=== PATIENT | male | born 1965 | race Caucasian/White ===

== ENCOUNTER 2017-05-11 11:57 | Emergency (ER) | payer MEDICAID, OTHER ==
[~2017-05-11] VITALS: Ht 160 cm; Wt 78.0 kg
[2017-05-11 11:59] VITALS: Ht 160 cm; Wt 78.0 kg
--- NOTE | 2017-05-11 12:14 | ERD ---
ER Documentation Chief Complaint Chief Complaint ap since monday HPI The patient is a 31-year-old male, presenting to the ER because of intermittent epigastric abdominal pain radiating to the left upper quadrant for the last 5 days. He went to [place] 4 days ago where he saw a doctor treated him with Bactrim DS. He took the medication 3 days ago when he returned to the [place] and did not get better, therefore he came to the ER. He also complains of minimal diffuse body itch and right ring finger itch after he took the Bactrim. The pain is worse with eating, he denies similar symptoms previously, denies fever, cough, neck pain, chest pain, dyspnea. He denies vomiting, dysuria, diarrhea, constipation. He does not smoke nor drink Past medical/surgical history: None ROS All systems reviewed and are negative except as per history of present illness. Medications Home Meds Active Scripts Triamcinolone Acetonide* (Kenalog*) 0.1%-15GM Cr, 1 APPLIC TOP BID for 7 Days, # 1 TUB Prov:SIM SOLIS MD 05/11/17 Pantoprazole* (Protonix*) 40 Mg Tablet.dr, 40 MG PO DAILY, #20 TAB Prov:SIM SOLIS MD 05/11/17 Diphenhydramine Hcl (Benadryl) 25 Mg Cap, 50 MG PO Q6, #20 CAP Prov:SIM SOLIS MD 05/11/17 Physical Exam Vitals Vital Signs Date Time Temp Pulse Resp B/P Pulse Ox O2 Delivery O2 Flow Rate FiO2 05/11/17 11:59 98.1 64 18 118/73 99 Physical Exam Const: No acute distress. Head: Atraumatic. Eyes: Normal Conjunctiva. ENT: Normal External Ears, Nose and Mouth. Neck: Full range of motion. No meningismus. Resp: Clear to auscultation bilaterally. Cardio: Regular rate and rhythm. Abd: Soft, non distended, normal bowel sounds, Minimal epigastric discomfort, no right lower quadrant, RUQ, CVA tenderness Skin: No petechiae or rashes. Back: No midline or flank tenderness. Ext: No cyanosis, or edema. Neur: Awake and alert. No focal deficit Psych: Normal Mood and Affect. Result Diagram: 05/11/17 1225 05/11/17 1225 Results 24 hrs Laboratory Tests Test 05/11/17 12:12 05/11/17 12:25 Urine Color YELLOW Urine Clarity CLEAR Urine pH 6.0 Urine Specific [place] 1.015 Urine Ketones NEGATIVEmg/dL Urine Nitrite NEGATIVEmg/dL Urine Bilirubin NEGATIVEmg/dL Urine Urobilinogen NEGATIVEmg/dL Urine Leukocyte Esterase NEGATIVELeu/ul Urine Microscopic RBC 1/HPF Urine Microscopic WBC 0/HPF Urine Mucus FEW/HPF Urine Hemoglobin 1+mg/dL Urine Glucose NEGATIVEmg/dL Urine Total Protein NEGATIVEmg/dl White Blood Count 5.010^3/ul Red Blood Count 5.1610^6/ul Hemoglobin 15.8g/dl Hematocrit 44.8% Mean Corpuscular Volume 86.8fl Mean Corpuscular Hemoglobin 30.6pg Mean Corpuscular Hemoglobin Concent 35.3g/dl Red Cell Distribution Width 12.1% Platelet Count 61895^3/UL Mean Platelet Volume 9.8fl Neutrophils % 44.7% Lymphocytes % 45.3% Monocytes % 7.4% Eosinophils % 2.0% Basophils % 0.4% Nucleated Red Blood Cells % 0.0/100WBC Neutrophils # 2.210^3/ul Lymphocytes # 2.310^3/ul Monocytes # 0.410^3/ul Eosinophils # 0.110^3/ul Basophils # 0.010^3/ul Nucleated Red Blood Cells # 0.010^3/ul Sodium Level 144mmol/L Potassium Level 4.3mmol/L Chloride Level 107mmol/L Carbon Dioxide Level 25mmol/L Anion Gap 16 Blood Urea Nitrogen 12mg/dl Creatinine 1.05mg/dl Glucose Level 92mg/dl Calcium Level 8.8mg/dl Total Bilirubin 1.2mg/dl Direct Bilirubin 0.00mg/dl Indirect Bilirubin 1.2mg/dl Aspartate Amino Transf (AST/SGOT) 29IU/L Alanine Aminotransferase (ALT/SGPT) 47IU/L Alkaline Phosphatase 93IU/L Total Protein 7.6g/dl Albumin 4.3g/dl Globulin 3.30g/dl Albumin/Globulin Ratio 1.30 Lipase 78U/L Current Medications Medications (Trade) Dose Ordered Sig/Stepan Route PRN Reason Start Time Stop Time Status Last Admin Dose Admin Pantoprazole (Protonix Tab) 40 mg ONCE ONCE PO 05/11/17 12:30 05/11/17 12:31 DC 05/11/17 13:33 Ketorolac Tromethamine (Toradol) 30 mg ONCE STAT IV 05/11/17 12:30 05/11/17 12:31 DC 05/11/17 13:33 Procedures/[place] [id number] Radiology Main Line: [phone] DIAGNOSTIC IMAGING REPORT Patient: MAK POLANCO : 1965 Age: 51 Sex: M MR #: [id number] DOS: 05/11/17 1230 Ordering MD: SIM SOLIS MD Location: E/R Room/Bed: PROCEDURE: US Abdomen. CLINICAL INDICATION: abdominal pain TECHNIQUE: Multiple real-time images were acquired of the patient's abdomen utilizing a high resolution transducer. COMPARISON: None FINDINGS: The liver demonstrates normal echogenicity and size and no focal lesions are seen. No gallstones are identified within the gallbladder. There is no pericholecystic fluid or gallbladder wall thickening. No intra or extrahepatic biliary dilatation is seen. The common bile duct measures 4 mm in maximal dimension. The pancreas is obscured. No free fluid is identified. The right kidney measures 10.6 cm without hydronephrosis. Visualized portion of the aorta and IVC are unremarkable. IMPRESSION: Unremarkable abdominal ultrasound. There is no evidence of cholelithiasis or cholecystitis. RPTAT: AA .Chaitanya Johnson MD, MD Date Time Electronically viewed and signed by .Chaitanya Johnson MD, MD on 05/11/2017 13:39 .J/ CC: SIM SOLIS MD MEDICAL MAKING DECISION: The patient is a 51-year-old male, presenting with acute epigastric abdominal pain, most likely gastritis, new hematuria of unclear etiology, Suspected drug allergy. He was treated with Protonix 40 mg p.o. for epigastric abdominal pain, Toradol 30 mg IV for his pain with good response. The differential diagnoses considered include but are not limited to cholelithiasis, cholecystitis, cystitis, pancreatitis, hepatitis, gastritis, peptic ulcer disease, gastric ulcer, appendicitis, diverticulitis, cholangitis, choledocholithiasis, partial small bowel obstruction. Departure Diagnosis: Primary Impression: Abdominal pain Additional Impressions: Hematuria Drug allergy Condition: Good Comments He was discharged with Benadryl, Protonix, Kenalog cream I discussed the findings with the patient. I advised the patient to follow-up with the primary physician in about 1-2 days, sooner if needed and return if any concern. Disclaimer: Inadvertent spelling and grammatical errors are likely due to EHR/ dictation software use and do not reflect on the overall quality of patient care. Also, please note that the electronic time recorded on this note does not necessarily reflect the actual time of the patient encounter. SIM SOLIS MD May 11, 2017 12:14
[2017-05-11] MEDS ORDERED: PANTOPRAZOLE (EC) 40 MG TAB PO ONE (12:30)
[2017-05-11] MEDS ORDERED: KETOROLAC 30 MG INJ IV STA (12:30)
[2017-05-11 12:39] LABS: BASOPHILS % 0.4 % (0.0-2.0); EOSINOPHILS # 0.1 10^3/ul (0.0-0.5); HEMATOCRIT 44.8 % (42.0-52.0); HEMOGLOBIN 15.8 g/dl (14.0-18.0); LYMPHOCYTES # 2.3 10^3/ul (0.8-2.9); LYMPHOCYTES % 45.3 % (15.0-51.0); MEAN CORPUSCULAR HEMOGLOBIN 30.6 pg (29.0-33.0); MEAN CORPUSCULAR HGB CONC 35.3 g/dl (32.0-37.0); MEAN CORPUSCULAR VOLUME 86.8 fl (82.0-101.0); MEAN PLATELET VOLUME 9.8 fl (7.4-10.4); MONOCYTE # 0.4 10^3/ul (0.3-0.9); MONOCYTES % 7.4 % (0.0-11.0); NEUTROPHIL # 2.2 10^3/ul (1.6-7.5); NEUTROPHILS % 44.7 % (39.0-77.0); PLATELET COUNT 253 10^3/UL (140-415); RED BLOOD COUNT 5.16 10^6/ul (4.70-6.10); RED CELL DISTRIBUTION WIDTH 12.1 % (11.5-14.5)
[2017-05-11 12:59] LABS: ALBUMIN 4.3 g/dl (3.3-4.9); ALBUMIN/GLOBULIN RATIO 1.3; BILIRUBIN,INDIRECT 1.2 mg/dl (0-1.1); BILIRUBIN,TOTAL 1.2 mg/dl (0.2-1.3); CALCIUM 8.8 mg/dl (8.4-10.2); CREATININE 1.05 mg/dl (0.61-1.24); POTASSIUM 4.3 mmol/L (3.5-5.1); TOTAL PROTEIN 7.6 g/dl (6.1-8.1)
[2017-05-11 13:34] LABS: ADD UMIC YES; UR ASCORBIC ACID NEGATIVE (NEGATIVE); UR BILIRUBIN (Dip) NEGATIVE (NEGATIVE); UR BLOOD (Dip) 1+ mg/dL (NEGATIVE); UR CLARITY CLEAR (CLEAR); UR COLOR YELLOW (YELLOW); UR GLUCOSE (Dip) NEGATIVE (NEGATIVE); UR KETONES (Dip) NEGATIVE (NEGATIVE); UR LEUKOCYTE ESTERASE (Dip) NEGATIVE Leu/ul (NEGATIVE); UR MUCUS FEW /HPF (NONE SEEN); UR NITRITE (Dip) NEGATIVE (NEGATIVE); UR RBC 1 /HPF (0-5); UR SPECIFIC GRAVITY (Dip) 1.015 (1.003-1.030); UR TOTAL PROTEIN (Dip) NEGATIVE (NEGATIVE); UR UROBILINOGEN (Dip) NEGATIVE (NEGATIVE)
--- NOTE | 2017-05-11 13:40 | RADRPT ---
PROCEDURE: US Abdomen. CLINICAL INDICATION: abdominal pain TECHNIQUE: Multiple real-time images were acquired of the patient's abdomen utilizing a high reso lution transducer. COMPARISON: None FINDINGS: The liver demonstrates normal echogenicity and size and no focal lesions are seen. No gallstones ar e identified within the gallbladder. There is no pericholecystic fluid or gallbladder wall thickeni ng. No intra or extrahepatic biliary dilatation is seen. The common bile duct measures 4 mm in max imal dimension. The pancreas is obscured. No free fluid is identified. The right kidney measures 10.6 cm without hydronephrosis. Visualized portion of the aorta and IVC are unremarkable. IMPRESSION: Unremarkable abdominal ultrasound. There is no evidence of cholelithiasis or cholecystitis. RPTAT: AA .Chaitanya Johnson MD, MD Date Time Electronically viewed and signed by .Chaitanya Johnson MD, MD on 05/11/2017 13:39 .J/
[2017-05-11] MEDS ORDERED: PANT40TA3 PO (13:59)
[2017-05-11] MEDS ORDERED: DIPH25CA6 PO (13:59)
[2017-05-11] MEDS ORDERED: TRIA15CR55 TOP (14:00)
[2017-05-11 14:25] VITALS: BP 137/72; PULSE 77; RESP 18; TEMP 99
== END 2017-05-11 14:26 | disposition home or self-care (01) ==
LOC: E/R 11:57
DX: R10.13 Epigastric pain (principal); R31.9 Hematuria, unspecified; T37.0X5A Adverse effect of sulfonamides, initial encounter; L29.9 Pruritus, unspecified
CPT/HCPCS: 36415; 76705; 80053; 81001; 83690; 85025; 96374; J1885; Z7502; Z7610

== ENCOUNTER 2017-08-10 07:53 | Emergency (ER) | END 2017-08-10 09:13 | disposition home or self-care (01) ==